=== PATIENT | female | born 1950 | race African-American/Black ===

== ENCOUNTER 2021-06-01 09:57 | Outpatient (CLI) | payer MEDICARE | END 2021-06-01 09:58 | disposition home or self-care (01) | LOC: CSHMAMMO 09:57 | PROVIDERS: ATTEND Family Medicine | DX: Z12.31 Encounter for screening mammogram for malignant neoplasm of breast (principal) | CPT/HCPCS: 77063; 77067 ==

== ENCOUNTER 2023-02-16 13:27 | Outpatient (CLI) | payer MEDICARE | END 2023-02-16 13:28 | disposition home or self-care (01) | LOC: CSHMAMMO 13:27 | PROVIDERS: ATTEND Family Medicine | DX: Z12.31 Encounter for screening mammogram for malignant neoplasm of breast (principal) | CPT/HCPCS: 77063; 77067 ==